=== PATIENT | female | born 1980 | race Hispanic/Latino ===

== ENCOUNTER → 2018-08-30 10:09 | Outpatient (CLI) | payer BC, SELFPAY ==
--- NOTE | 2018-08-30 | DI.US.S_ITS ---
PROCEDURE: US PELVIC COMPLETE INDICATIONS: OVARIAN CYST TECHNIQUE: Real-time scanning was performed of the pelvic organs, with image documentation. Additional endovaginal scanning was necessary due to incomplete visualization of the adnexal and endometrial structures by transabdominal scanning. COMPARISON: None. FINDINGS: Transabdominal scanning: Limited scanning through the kidneys shows no hydronephrosis. No pathologic free abdominal or pelvic fluid. Endovaginal scanning: Uterus: Uterus is normal in size at 3.9 x 4.2 x 7.4 cm. The endometrium measures 6.7 mm in combined thickness. Ovaries: Normal bilaterally measuring up to 2.4 x 2.2 x 3.1 cm on the right containing a simple cyst measuring up to 2.1 cm, and the left measures 1.3 x 1.1 x 2.5 cm. IMPRESSION: Simple appearing small cyst right ovary, measuring up to 2.1 cm in maximal dimension. The remainder of the study is normal and no followup of the cyst discussed above on the right is recommended. Dictated by: Harjit Mak M.D. on 08/30/2018 at 11:17 Approved by: Harjit Mak M.D. on 08/30/2018 at 11:19
== END ==
PROVIDERS: PCP Family Medicine; Visit Provider Family Medicine
DX: N83.201 Unspecified ovarian cyst, right side (principal); R10.31 Right lower quadrant pain
CPT/HCPCS: 76830; 76856